=== PATIENT | female | born 1970 | race Hispanic/Latino ===

== ENCOUNTER 2019-05-22 15:18 | Emergency (ER) | payer OTHER ==
[~2019-05-22] VITALS: Ht 152.4 cm; Wt 61.7 kg
--- OUTSIDE RECORDS SUMMARY | 2019-05-22 15:22 | XMS REPORT ---
[facility] Address Unknown Phone Unavailable Care Team Providers Care Marketing Information Coordinator Name Role Phone Unavailable Unavailable Payers Payer Name Policy Type Policy Number Effective Date Expiration Date Problems This patient has no known problems. Allergies, Adverse Reactions, Alerts Allergy Name Allergy Type Status Severity Reaction(s) Onset Date Inactive Date Treating Clinician Comments No Known Allergies DA Active U 2018-06-07 00:00:00 No Known Allergies DA Active U 2013-02-25 00:00:00 Medications This patient has no known medications.
== END 2019-05-22 16:20 | disposition home or self-care (01) ==
LOC: ER 15:18
DX: L29.9 Pruritus, unspecified (principal); J30.9 Allergic rhinitis, unspecified
CPT/HCPCS: 99281